=== PATIENT | female | born 2000 | race Caucasian/White ===

== ENCOUNTER → 2025-04-11 13:30 | Outpatient (REF) | payer OTHER, SELFPAY | LOC: PNTC 13:30 | PROVIDERS: ATTENDING PHYSICIAN Student in an Organized Health Care Education/Training Program | DX: Z36.0 Encounter for antenatal screening for chromosomal anomalies (principal); Z36.82 Encounter for antenatal screening for nuchal translucency; Z3A.12 12 weeks gestation of pregnancy | CPT/HCPCS: 76801; 76813 ==

== ENCOUNTER → 2025-06-27 08:45 | Outpatient (REF) | payer OTHER, SELFPAY | LOC: PNTC 08:45 | PROVIDERS: ATTENDING PHYSICIAN Obstetrics & Gynecology | DX: O09.92 Supervision of high risk pregnancy, unspecified, second trimester (principal); Z36.86 Encounter for antenatal screening for cervical length; Z36.3 Encounter for antenatal screening for malformations | CPT/HCPCS: 76805; 76817 ==